=== PATIENT | male | born 1970 | race Caucasian/White ===

== ENCOUNTER 2017-10-02 09:09 | Emergency (ER) | payer MEDICAID ==
[~2017-10-02] VITALS: Ht 182.9 cm; Wt 166.6 kg
[~2017-10-02 09:09] MED LIST: BENADRYL; SULF-59; TYL3
[2017-10-02 09:20] VITALS: BP 152/95
--- NOTE | 2017-10-02 09:24 | NUR ---
Patient ambulated to bed 3. RN evaluating patient at bedside.
--- NOTE | 2017-10-02 09:30 | NUR ---
46M BIB SELF C/O LEFT EAR PAIN X 3-4 DAYS; PT STATES NO TRAUMA OR INJURY TO SITE AT THIS TIME; PT REPORTS OF "BUG" FLYING INTO EAR AND HAS BEEN HURTING SINCE; PT ALSO REPORTS DECREASED HEARING TO LEFT EAR; NO DISCHARGE NOTED TO LEFT EAR; SKIN IS PINK/WARM/DRY; AOX4 WITH EVEN AND STEADY GAIT; RR ARE EVEN AND UNLABORED;VSS; PATIENT POSITIONED FOR COMFORT; HOB ELEVATED; ER MD MADE AWARE OF PT STATUS.
--- NOTE | 2017-10-02 09:31 | NUR ---
Dr. Isidro evaluating patient at bedside.
[2017-10-02] MEDS ORDERED: cefTRIAXone 1,000 MG in LIDOCAINE 1% ***ER ONLY *** 2.1 ML IM ONE (09:45)
[2017-10-02] MEDS ORDERED: KETOROLAC 30 MG/ML VIAL IM ONE (09:45)
[2017-10-02 10:42] VITALS: BP 150/97
--- NOTE | 2017-10-02 10:42 | NUR ---
Patient discharged with v/s stable. Written and verbal after care instructions given and explained. Patient alert, oriented and verbalized understanding of instructions. Ambulatory with steady gait. All questions addressed prior to discharge. ID band removed. Patient advised to follow up with PMD. Rx of Cipro, Tramadol, and Cortisporin given. Patient educated on indication of medication including possible reaction and side effects. Opportunity to ask questions provided and answered.
== END 2017-10-02 10:42 | disposition home or self-care (01) ==
LOC: MED 09:09
DX: H66.92 Otitis media, unspecified, left ear (principal); H60.92 Unspecified otitis externa, left ear; E66.01 Morbid (severe) obesity due to excess calories; I10 Essential (primary) hypertension
CPT/HCPCS: 96372; 99284; J0696; J1885; J2001

== ENCOUNTER 2018-02-19 21:01 | Inpatient (IN) | payer SELFPAY ==
[~2018-02-19] VITALS: Ht 180.3 cm; Wt 191.9 kg
[2018-02-19 21:15] VITALS: BP 174/105
--- NOTE | 2018-02-19 21:16 | NUR ---
PT W/C ASSISTED TO BED 11
--- NOTE | 2018-02-19 21:38 | NUR ---
Dr. Arshad evaluating patient at bedside.
[2018-02-19] MEDS ORDERED: MORPHINE SULFATE 4 MG/ML SYR IVP ONE (21:40)
[2018-02-19] MEDS ORDERED: ONDANSETRON 4 MG/2 ML VIAL IVP ONE (21:40)
--- NOTE | 2018-02-19 21:40 | NUR ---
47Y/M PT. PRESENTS TO ED WITH C/O CHEST PAIN X 2 DAYS. DAUGHTER STATES PAIN ON AND OFF, TODAY GET WORSE. HX. HTN. AAO X4, AMBULATES WITH ASSIST AT THIS TIME. GCS 15. RESPIRATIONS ROOM AIR, EVEN AND UNLABORED. BL LUNG CLEAR, C/O LT. CHEST PAIN 10/10. BP ELEVATED, ER MD MADE AWARE OF PT. STATUS.
[2018-02-19 22:16] LABS: HEMOGLOBIN 15.1 g/dL (12.0-18.0); MEAN CORPUSCULAR HEMOGLOBIN 24 pg (27-31); MEAN CORPUSCULAR HGB CONC 32 g/dL (33-37); MEAN CORPUSCULAR VOLUME 74.6 fL (80-94); PLATELET COUNT (AUTO) 247 K/uL (140-450); RED BLOOD CELL COUNT(AUTO) 6.43 MIL/uL (4.20-6.10); RED CELL DISTRIBUTION WIDTH 14.3 % (11.6-13.7); WHITE BLOOD COUNT (AUTO) 17.5 K/uL (4.8-10.8)
[2018-02-19 22:22] LABS: ANION GAP 17.6 (8-16); CHLORIDE 103 mmol/L (98-107); CREATININE 1.5 mg/dL (0.7-1.3); GFR ARICAN-AMERICAN 65 mL/min (>90); GLUCOSE 183 mg/dL (74-106); POTASSIUM 3.6 mmol/L (3.5-5.1); SODIUM SERUM 143 mmol/L (136-145); UREA NITROGEN, BLOOD 18 mg/dL (7-18)
[2018-02-19 22:27] LABS: ALBUMIN 3.7 g/dL (3.4-5.0); ASPARTATE AMINOTRANSFERASE 27 U/L (15-37); LYMPHOCYTES % (MANUAL) 17 % (20-46); MAGNESIUM 1.9 mg/dL (1.8-2.4); MONOCYTES % (MANUAL) 1 % (5-12); PHOSPHORUS 4.6 mg/dL (2.5-4.9); TOTAL BILIRUBIN 0.2 mg/dL (0.0-1.0)
[2018-02-19] MEDS ORDERED: HYDROmorphone PFS 2 MG/ML SYR IVP ONE (22:45)
--- NOTE | 2018-02-19 22:45 | NUR ---
Patient appears to be resting comfortably in bed. Vital Signs within normal limits. Respirations even and unlabored.
[2018-02-19 22:47] LABS: LIPASE 13175 U/L (73-393)
[2018-02-19 22:54] LABS: PROTHROMBIN TIME 10.6 secs (10.8-13.4)
[2018-02-19] MEDS ORDERED: NACL 0.9% 1,000 ML IV ONE (23:20)
--- NOTE | 2018-02-19 23:36 | NUR ---
PT TAKEN TO RADIOLOGY
--- NOTE | 2018-02-19 23:49 | NUR ---
PT RETURN FROM RADIOLOGY
--- NOTE | 2018-02-19 23:59 | NUR ---
PT.MITCHELL TO URINATE, DR SECHRIST MADE AWARE
[2018-02-20] MEDS: NACL 0.9% 1,000 ML IV SCH ×5 (00:51→20:48)
[2018-02-20] MEDS ORDERED: MORPHINE SULFATE 2 MG/ML SYR IVP PRN ×2 (00:55→03:05)
[2018-02-20] MEDS ORDERED: ACETAMINOPHEN 325 MG TAB PO PRN (00:55)
--- NOTE | 2018-02-20 01:20 | NUR ---
Patient will be admitted to care of . Admited to TELEMETRY. Will go to room 116. Belongings list completed. Report to NO MARIN.
[2018-02-20 01:30] LABS: CHOL/HDL RATIO 5.1 (1-4.5); FREE T4 (FREE THYROXINE) 0.95 ng/dL (0.76-1.46); MAGNESIUM 1.9 mg/dL (1.8-2.4); THYROID STIMULATING HORMONE 5.8 uIU/mL (0.34-3.74)
--- NOTE | 2018-02-20 01:50 | NUR ---
RECEIVED FROM ER PER BENJY AWAKE AND ALERT. NO SOB. PER PT. IN PAIN STILL AND DX. OF PANCREATITIS. SKIN INTACT AND WITH MULTIPLE TATTOES TO DIFFERENT PARTS OF THE BODY.CARE PLANS FOR THE NIGHT DISCUSSED WITH HIM AND CALL LIGHT WITH IN REACH. INDEPENDNET. ROM X 4. ORIENTED X 4. NO EDEMA . CTAB.
[2018-02-20] MEDS: ONDANSETRON 4 MG/2 ML VIAL IM/IVP PRN ×2 (01:55→09:07)
[2018-02-20 02:03] VITALS: BP 145/71
--- NOTE | 2018-02-20 03:00 | NUR ---
PT. REFUSED TO HAVE SEQUENTIALS RT GOES BRP MOST OF TIMES. INDEPENDENT AND WALKS WELL TO RESTROOM. Addendum: 02/20/18 at 0736 by Kelsey Pace RN PT. REFUSED TO HAVE SEQUENTIALS RT GOES BRP MOST OF TIMES. INDEPENDENT AND WALKS WELL TO RESTROOM.
[2018-02-20] MEDS ORDERED: BISACODYL 10 MG SUPP RC ONE (03:05)
[2018-02-20] MEDS ORDERED: MORPHINE SULFATE 2 MG/ML SYR IVP ONE (03:05)
[2018-02-20] MEDS: DOCUSATE SODIUM 100 MG GELCAP PO PRN (03:44)
--- NOTE | 2018-02-20 03:52 | NUR ---
PT. WOKE UP AND COMPLAINED THAT HE STILL HAS PAIN INSPITE OF WHAT MD ORDERED EARLIER OF 2 MG. MORPHINE IVP. PT. ACTUALLY CALMED DOWN A LITTLE BIT AND SLEPT BUT WOKE UP AGAIN AND COMPLAINING OF PAIN. MD ORDERED FOR 1 MG. MORE. MEDICATED ORDERED OF 1 MG. IVP MORPHINE.
--- NOTE | 2018-02-20 04:21 | NUR ---
SLEEPING AT THIS TIME.
[2018-02-20] MEDS ORDERED: PIPERACILLIN/TAZOBACTAM 3.375 GM VIAL IV ONE (05:54)
[2018-02-20] MEDS: PIPER/TAZO 3.375GM/D5W PREMIX 50 ML IV SCH ×3 (06:15→17:57)
[2018-02-20] MEDS ORDERED: NITROGLYCERIN 0.4 MG TAB SL PRN (06:20)
[2018-02-20 06:25] VITALS: BP 146/74
[2018-02-20 07:29] LABS: ANION GAP 16.4 (8-16); CREATININE 1.2 mg/dL (0.7-1.3); POTASSIUM 4.4 mmol/L (3.5-5.1)
--- NOTE | 2018-02-20 07:32 | NUR ---
ENDORSED TO THE NEXT RN FOR CONTINUITY OF CARE. CALL LIGHT WITH IN REACH. NO SOB. PAIN MEDICATION JUST ADMINISTERED. INDEPENDENT. ROM X 4. CLEAR SPEECH.
--- NOTE | 2018-02-20 07:33 | NUR ---
RECEIVED REPORT FROM SENIOR STATISTICIAN RN. PATIENT IS AAOX4, ASLEEP AT THIS TIME BUT AWAKENS BY NAME. NO SIGNS AND SYMPTOMS OF ACUTE DISTRESS NOTED AT THIS TIME. HAS IV TO THE LEFT AC INFUSING NS AT 200 ML/HR, SITE IS CLEAN, DRY, PATENT AND INTACT. BED IS IN LOWEST POSITION, SIDE RAILS UP X2, CALL LIGHT WITHIN REACH. WILL CONTINUE TO MONITOR.
[2018-02-20 07:42] LABS: MAGNESIUM 1.8 mg/dL (1.8-2.4); PHOSPHORUS 3.6 mg/dL (2.5-4.9)
[2018-02-20 07:56] LABS: BASOPHILS # (AUTO) 0.1 K/uL (0.00-0.22); EOSINOPHILS # (AUTO) 0.1 K/uL (0-0.4); HEMATOCRIT 45.3 % (36-52); HEMOGLOBIN 14.4 g/dL (12.0-18.0); LYMPHOCYTES # (AUTO) 0.7 K/uL (2.0-11.5); LYMPHOCYTES % (AUTO) 5.5 % (20.5-51.1); MEAN CORPUSCULAR HEMOGLOBIN 24 pg (27-31); MEAN CORPUSCULAR HGB CONC 32 g/dL (33-37); MEAN CORPUSCULAR VOLUME 74.9 fL (80-94); MONOCYTES # (AUTO) 0.6 K/uL (0.8-1.0); NEUTROPHILS # (AUTO) 11.2 K/uL (1.8-7.7); NEUTROPHILS % (AUTO) 87.5 % (42.2-75.2); PLATELET COUNT (AUTO) 211 K/uL (140-450); RED BLOOD CELL COUNT(AUTO) 6.04 MIL/uL (4.20-6.10); RED CELL DISTRIBUTION WIDTH 14.3 % (11.6-13.7); WHITE BLOOD COUNT (AUTO) 12.7 K/uL (4.8-10.8)
[2018-02-20 08:00] VITALS: BP 128/63
[2018-02-20] MEDS ORDERED: HYDROmorphone PFS 2 MG/ML SYR IVP PRN (08:15)
[2018-02-20] MEDS: LISINOPRIL 20 MG TAB PO SCH (09:04)
[2018-02-20] MEDS: LACTOBACILLUS RHAMNOSUS GG 1 EACH CAP PO SCH (09:04)
[2018-02-20] MEDS: METOPROLOL SUCCINATE 50 MG TABER PO SCH (09:05)
[2018-02-20] MEDS: CALCIUM CARB/VIT-D 500 MG/200 IU 1 TAB PO SCH (09:06)
[2018-02-20] MEDS: ASPIRIN 81 MG TAB.CHEW PO SCH (09:06)
--- NOTE | 2018-02-20 09:40 | NUR ---
SPOKE TO STAFF FROM THE LAB WHO CALLED WITH A CRITICAL LAB RESULT: LACTIC ACID 3.1
--- NOTE | 2018-02-20 09:55 | NUR ---
MADE DR HARDY AND JESSICA AWARE OF PATIENTS LACTIC ACID RESULTS. NO NEW ORDERS AT THIS TIME. WILL CONTINUE TO MONITOR.
--- NOTE | 2018-02-20 11:15 | NUR ---
PATIENTS IV SITE IS INFILTRATED. REMOVED FROM SITE AND CATHETER INTACT. STARTED NEW IV ON THE LEFT HAND 22G. SITE IS CLEAN, DRY, PATENT AND INTACT. PATIENT TOLERATED WELL. WILL CONTINUE TO MONITOR.
[2018-02-20 12:00] VITALS: BP 154/96
[2018-02-20] MEDS: HYDROmorphone PFS 2 MG/ML SYR IVP PRN ×3 (12:13→20:44)
[2018-02-20] MEDS: HYDROcodone/APAP 7.5/325 MG 1 TAB PO PRN (15:56)
[2018-02-20 16:00] VITALS: BP 142/87
--- NOTE | 2018-02-20 16:03 | NUR ---
MADE DR HARDY AND DR COLLADO AWARE THAT PATIENTS O2 SATURATION WAS 85% AND NOT GOING BACK UP. WHEN I ASKED THE PATIENT IF IT HURTS WHEN HE TAKES DEEP BREATHS HE STATED YES. PLACED HIM ON A NASAL CANNULA AT 2LPM.
--- NOTE | 2018-02-20 19:19 | NUR ---
ENDORSED PATIENT TO MAGNETIZER RN FOR CONTINUITY OF CARE. PATIENT IN STABLE CONDITION.
--- NOTE | 2018-02-20 19:20 | NUR ---
RECEIVED FROM AM RN IN BED WITH VISITORS. STATED HE JUST CAME IN FROM RESTROOM INSIDE ROOM. PT. ABLE TO VERBALIZE NEEDS WELL. ENCOURAGED TO DEEP BREATH RT PER AM RN HE IS DE-SATING TO LESS THAN 90. NOTICED PT. BEEN SHORT BREATHING. PLACED BY RESPIRATORY THERAPIST AT THIS TIME 02 TO 4 LPM/NC AND DISCUSSED WITH HIM HOW TO BREATH DEEPLY AND EFFECTS OF IT IF HE DOES NOT BREATH RIGHT. PT. RELAXED AND PRACTICED DEEP BREATHING WHICH MAKES 02 SAT GO TO 94%. CALL LIGHT WITH IN REACH.
[2018-02-20 20:35] VITALS: BP 138/75
[2018-02-20] MEDS: ATORVASTATIN 20 MG TAB PO SCH (20:45)
--- NOTE | 2018-02-20 20:49 | NUR ---
PT. MEDICATED WITH DILAUDID RT COMPLAINED OF SEVERE PAIN. ENCOURGED TO DEEP BREATH.
--- NOTE | 2018-02-20 21:51 | NUR ---
SLEEPING AT THIS TIME. CALL LIGHT WITH IN REACH.
[2018-02-20] MEDS ORDERED: HYDROmorphone PFS 4 MG/ML SYR ONE (23:50)
[2018-02-21] MEDS: PIPER/TAZO 3.375GM/D5W PREMIX 50 ML IV SCH ×3 (00:18→12:17)
[2018-02-21] MEDS: HYDROmorphone PFS 2 MG/ML SYR IVP PRN ×3 (00:20→18:49)
--- NOTE | 2018-02-21 00:20 | NUR ---
DILAUDID 2 MG. IVP ADMINISTERED RT PT. AWAKE AND COMPLAINED OF ABDOMINAL PAIN. MEDICATED ORDERED. 02 SAT 93% WITH 02 AT 4LPM/NC. REMINDED TO DEEP BREATH. "OK"
--- NOTE | 2018-02-21 02:38 | NUR ---
SLEEPING WELL. WAKES UP WHEN CALLED BY NAME. CALL LIGHT WITH IN REACH. TELEMETRY MONITORING.
[2018-02-21] MEDS: NACL 0.9% 1,000 ML IV SCH ×5 (03:02→22:27)
--- NOTE | 2018-02-21 05:12 | NUR ---
PT. PLACED ON OXYMIZER BY RESPIRATORY THERAPIST RT LOW 02 SAT OF 87 ON 02 AT 4 LPM/NC .PT. NOW 02 SAT IS AVERAGING 91-92 %. ENCOURGED TO BREATH DEEP AND WAKE UP FOR US FOR NOW. SITTING IN CHAIR AT THIS TIME. PT. STATES THAT HE REALYY SLEEPS THIS WAY AT HOME. ADVISED BY ME AND RESPIRATORY THERAPIST TO SEE A SLEEP APNEA SPECIALIST WHEN HE GOES HOME FOR POSSIBLE CPAP MACHINE USE. Addendum: 02/21/18 at 0640 by Kelsey Pace RN CHARTING FOR 02/21/18 0638 NOTES. -RESIDENT MD PERRY INFORMED ABOUT IT. NO ORDERS GIVEN AT THIS TIME.
[2018-02-21 05:17] VITALS: BP 116/49
--- NOTE | 2018-02-21 05:31 | NUR ---
PT. BACK IN BED AT THIS TIME WITH HEAD OF BED AT 40 DEGREES ANGLE REQUESTED BY HIM. AM HYGIENE CARE RENDERED BY CNAS.
--- NOTE | 2018-02-21 06:02 | NUR ---
RE-CHECKED 02 SAT NOW WITH OXYMIZER 93 % WITH SAME SETTING CALIBRATED BY RESPIRATORY THERAPIST. ABLE TO VERBALIZE WELL. HOB UP PREFERRED BY PT. AT 40 DEGREE ANGLE. ON TELEMETRY MONITORING.
[2018-02-21] MEDS ORDERED: HYDROmorphone PFS 2 MG/ML SYR IVP PRN (07:15)
--- NOTE | 2018-02-21 08:00 | NUR ---
RECEIVED PATIENT REPORT AT BEDSIDE, PATIENT IS AAOX4 AND SHOWS NO S/S OF ACUTE DISTRESS ON OXYMIZER AT 10L/MIN OF OXYGEN. SKIN INTACT. IV NOTED PATENT AND INTACT WITH IVF'S INFUSING WELL. ON CONTACT PRECAUTIONS AND SAFETY PRECAUTIONS IN PLACE. STATED ABD PAIN 5/10 AFTER EATING BREAKFAST. WILL ADMINISTER PRN PAIN MEDICATION. DISCUSSED PATIENT CARE AND PATIENT VERBALIZED UNDERSTANDING. ALL NEEDS MET AT THIS TIME. PATIENT IS SITTING IN CHAIR. CALL LIGHT WITHIN REACH.
[2018-02-21] MEDS: CALCIUM CARB/VIT-D 500 MG/200 IU 1 TAB PO SCH (09:13)
[2018-02-21] MEDS: LACTOBACILLUS RHAMNOSUS GG 1 EACH CAP PO SCH (09:13)
[2018-02-21] MEDS: LISINOPRIL 20 MG TAB PO SCH (09:13)
[2018-02-21] MEDS: METOPROLOL SUCCINATE 50 MG TABER PO SCH (09:14)
[2018-02-21] MEDS: ASPIRIN 81 MG TAB.CHEW PO SCH (09:14)
[2018-02-21] MEDS: HYDROcodone/APAP 7.5/325 MG 1 TAB PO PRN (09:15)
[2018-02-21] MEDS: ONDANSETRON 4 MG/2 ML VIAL IM/IVP PRN ×2 (09:23→20:57)
[2018-02-21 09:27] VITALS: BP 139/82
--- NOTE | 2018-02-21 09:31 | NUR ---
ADMINISTERED SCHEDULED MEDICATIONS. PATIENT TOLERATED WELL, NO DIFFICULTY SWALLOWING. PATIENT DID C/O ABD PAIN AFTER EATING BREAKFAST, 5/10 ABD PAIN AND C/O NAUSEA. GAVE PRN PAIN MED AND PRN NAUSEA MEDICATION. ALL NEEDS MET AT THIS TIME.
[2018-02-21 10:48] LABS: HEMATOCRIT 41.5 % (36-52); HEMOGLOBIN 13.3 g/dL (12.0-18.0); MEAN CORPUSCULAR HEMOGLOBIN 24 pg (27-31); MEAN CORPUSCULAR HGB CONC 32 g/dL (33-37); MEAN CORPUSCULAR VOLUME 73.9 fL (80-94); PLATELET COUNT (AUTO) 199 K/uL (140-450); RED BLOOD CELL COUNT(AUTO) 5.62 MIL/uL (4.20-6.10); RED CELL DISTRIBUTION WIDTH 14.7 % (11.6-13.7)
--- NOTE | 2018-02-21 11:00 | NUR ---
PATIENT HAS BEEN SCREENED AND CATEGORIZED HIGH NUTRITION RISK. PATIENT WILL BE SEEN WITHIN 1-2 DAYS OF ADMISSION. 02/19/18 - 02/21/[address]
[2018-02-21 11:06] LABS: LYMPHOCYTES % (MANUAL) 10 % (20-46); MONOCYTES % (MANUAL) 6 % (5-12)
--- NOTE | 2018-02-21 11:21 | NUR ---
CALLED DR. LETHA LANGE TO REVIEW AB SAMPLE REPORT
[2018-02-21 12:00] VITALS: BP 110/67
--- NOTE | 2018-02-21 12:23 | NUR ---
CALL BACK FROM DR. LETHA LANGE REVIEWED ABG SAMPLE REPORT TRBO NEW ORDERS: HHN DUONEB Q6 & Q4PRN SOB/WHEEZE; CONTINUE WITH SUPPLEMENTAL OXYGEN KEEP SATURATION GREATER THAN 90%
--- NOTE | 2018-02-21 12:25 | NUR ---
NEY MUSA/NO [id number] REVIEWED ABG SAMPLE REPORT
[2018-02-21] MEDS ORDERED: ALBUTEROL SULFATE/IPRATROPIU 3 ML SOL IH PRN ×2 (12:30→12:35)
--- NOTE | 2018-02-21 12:30 | NUR ---
ADMINISTERED SCHEDULED IV ABX, INFUSING WELL, PATIENT C/O 09/07 ABD PAIN AND CHEST PAIN, DR LOPEZ NOTIFIED. PATIENT ALSO C/O SOB, TO PLACE ORDERS FOR BREATHING TX. PATIENT HAS FAMILY AT BEDSIDE, ALL NEEDS MET AT THIS TIME.
--- NOTE | 2018-02-21 12:35 | NUR ---
ADMINISTERED DILAUDID 1 MG IVP FOR 10/10 SHARP ABD PAIN. WILL REASSESS IN ONE HR.
--- NOTE | 2018-02-21 12:45 | NUR ---
CALLED DR. MARISOL LOPEZ [phone] TO REVIEW AND CLARIFY BIPAP ORDER PER DR DHARMESH LOPEZ NOT IN AREA AT THIS TIME FROM DR RODRIGUEZ UNDERSTANDING BIPAP TO BE USED AT [facility] WILL HAVE DR LOPEZ CALL RESP DEPT
[2018-02-21] MEDS ORDERED: ALBUTEROL SULFATE/IPRATROPIU 3 ML SOL IH SCH (13:00)
--- NOTE | 2018-02-21 13:20 | NUR ---
ULTRA SOUND PROCEDURE IN PROGRESS NO SOB NOTED KITCHEN HELP HANDYMAN TO ATTEMPT HHN THERAPY AT A LATER TIME
--- NOTE | 2018-02-21 13:35 | NUR ---
PATIENT STATES, "PAIN IS A LOT BETTER NOW."
--- NOTE | 2018-02-21 13:59 | NUR ---
02/21/18 RD INITIAL ASSESSMENT COMPLETED PLEASE REFER TO NUTRITION ASSESSMENT UNDER CARE ACTIVITY FOR ESTIMATED NUTRITIONAL NEEDS. 1. CONTINUE CLEAR LIQUID DIET TOLERATED 2. ADVANCE DIET TOLERATED TO CARDIAC PER MD 3. RD TO FOLLOW-UP 3-5 DAYS, MODERATE RISK EMELI FELDER, RD
[2018-02-21] MEDS: ALBUTEROL SULFATE/IPRATROPIU 3 ML SOL IH SCH ×2 (14:10→19:19)
--- NOTE | 2018-02-21 15:40 | NUR ---
AWAKE AND ALERT RESPONSIVE TOR SLD EDUCATIONAL AIDE VERBAL COMMANDS NO INDICATIONS OF PULMONARY DISTRESS NOTED PATIENT DENIES SOB RR 22-24 SUPPLEMENTAL OXYGEN ON AND FUNCTIONING WELL FLOWMETER AT 10 LPM VIA OXYMIZER SATURATION 93%-94% PATIENT IN BED WITH HOB AT 40 DEGREES TOLERATED INCENTIVE SPIROMETRY THERAPY WELL WITHOUT ADVERSE REACTIONS NOTED ENCOURAGED PATIENT WITH ACKNOWLEDGEMENT TO USE EVERY 1-2 HOURS WHILE AWAKE BIPAP PLACED AT BEDSIDE
[2018-02-21 16:06] VITALS: BP 119/53
[2018-02-21] MEDS: DOCUSATE SODIUM 100 MG GELCAP PO PRN (17:33)
[2018-02-21] MEDS: PIPERACILLIN/TAZOBACTAM 3.375 GM in DEXTROSE 5% 50 ML IV SCH ×2 (17:34→23:40)
--- NOTE | 2018-02-21 17:40 | NUR ---
ADMINISTERED SCHEDULED MEDICATIONS, PT C/O CONSTIPATION AND WAS GIVEN COLACE 100 MG PO. IV ABX INFUSING WELL AT THIS TIME. ALL NEEDS MET. BED IN LOW POSITION WITH CALL LIGHT WITHIN REACH.
[2018-02-21] MEDS ORDERED: KETOROLAC 15 MG/ML VIAL IVP PRN (18:40)
--- NOTE | 2018-02-21 19:08 | NUR ---
GAVE PATIENT REPORT AT BEDSIDE, PATIENT ENDORSED IN STABLE CONDITION.
--- NOTE | 2018-02-21 19:09 | NUR ---
RECEIVED PATIENT REPORT AT BEDSIDE, PATIENT IS AAOX4 AND SHOWS NO S/S OF ACUTE DISTRESS ON OXYMIZER AT 10L/MIN OF OXYGEN. SKIN INTACT. IV NOTED PATENT AND INTACT WITH IVF'S INFUSING WELL. ON CONTACT PRECAUTIONS AND SAFETY PRECAUTIONS IN PLACE. RR EVEN/UNLABORED. INITIAL ASSESSMENT COMPLETED. PLAN OF CARE DISCUSSED WITH PT, VERBALIZED UNDERSTANDING, ALL SAFETY PRECAUTIONS MET, CALL LIGHT WITHIN REACH, WILL CONTINUE TO MONITOR
[2018-02-21 20:00] VITALS: BP 120/59
--- NOTE | 2018-02-21 21:00 | NUR ---
PT AND SISTER REQUEST THAT PULMONARY DR COME IN AND TALK WITH THEM. I EXPLAINED THEY DO NOT COME IN AT NIGHT BUT THE RESIDENT DR IS HERE NOW AND CAN COME SEE HIM. WILL NOTIFY DR. HANNA
[2018-02-21] MEDS: ATORVASTATIN 20 MG TAB PO SCH (21:02)
--- NOTE | 2018-02-21 21:15 | NUR ---
DR. HANNA IN TO SEE PT AND DISCUSS PLAN OF CARE
--- NOTE | 2018-02-21 21:30 | NUR ---
PT REQUESTS RT TO COME FIX BI-PAP
--- NOTE | 2018-02-21 21:58 | NUR ---
2149 PLACED PT ON BIPAP IPAP 12 EPAP 6 RR 16 FIO2 60% SATS 97%. NO SOB NOTED PT TOLERATES MASK AT THIS TIME
--- NOTE | 2018-02-21 22:00 | NUR ---
DR. HANNA IN TO SEE PT AND EXPLAIN CT WITH CONTRAST, REASONS AND INDICATIONS
--- NOTE | 2018-02-21 22:00 | NUR ---
IV STARTED IN L AC 20G FOR CT WITH CONTRAST, 2 ATTEMPTS MADE, PT TOLERATED WELL
--- NOTE | 2018-02-21 22:10 | NUR ---
IN TO HAVE PT SIGN CONSENT. SISTER STATES THAT HE TOLD DR HIS BROTHER IS ALLERGIC TO SHELLFISH AND DR HANNA DIDN'T SAY ANYTHING. WILL NOTIFY DR. HANNA
--- NOTE | 2018-02-21 22:20 | NUR ---
DR. HANNA MADE AWARE THAT PT ALLERGIC TO SHELLFISH. HE STATED IT IS OKAY
--- NOTE | 2018-02-21 23:25 | NUR ---
URSZULA FROM RAD CALLED TO ASK ABOUT PT GETTING CT. TOLD HER PT HAS 20G STARTED IN AC AND CONSENT IS SIGNED. URSZULA STATED SHE NEEDS TO SEE PENDING LABS FIRST
--- NOTE | 2018-02-21 23:25 | NUR ---
CALLED JOSE TO ASK WHY LABS ARE STILL PENDING. SHE STATES THEY HAVE BEEN SENT TO [facility] BECAUSE THEIR MACHINES ARE DOWN. SHE WILL FOLLOW UP WITH [facility]
[2018-02-22] VITALS: BP 118/62
--- NOTE | 2018-02-22 00:15 | NUR ---
PT CALLED REQUESTING EXTRA BLANKETS AND PILLOWS FOR THREE FAMILY MEMBERS
[2018-02-22] MEDS ORDERED: NACL 0.9% 1,000 ML IV ONE (00:20)
[2018-02-22] MEDS: ALBUTEROL SULFATE/IPRATROPIU 3 ML SOL IH SCH ×4 (01:12→19:04)
[2018-02-22] MEDS: ONDANSETRON 4 MG/2 ML VIAL IM/IVP PRN (01:18)
--- NOTE | 2018-02-22 01:30 | NUR ---
TANNA FROM [facility] CALLED AND STATED SHE REFUSES TO DO CT BECAUSE CREATININE IS 2.0, NOTIFIED DR. HANNA. HE ORDERED BOLUS AND STATES WE WILL RECHECK IN AM
--- NOTE | 2018-02-22 01:30 | NUR ---
PT CALLED, PT STATES, "SOMEONE CAME IN AND TOLD ME THEY DON'T NEED TO HELP ME AND I'M NOT THIER PROBLEM." I ASKED PT WHO SAID THAT TO HIM AND HE SAID HE COULD NOT REMEMBER AND DOESN'T KNOW WHAT THEY LOOKED LIKE
--- NOTE | 2018-02-22 02:20 | NUR ---
PT CALLED, CAME IN AND PT STATES, "GET THIS BI-PAP OFF OF ME I CAN'T BREATH. I DON'T KNOW WHY THEY PUT THIS ON ME." GILBERTO FROM RT STATED HE WILL COME TAKE THE BI-PAP OFF
--- NOTE | 2018-02-22 02:30 | NUR ---
NOTIFIED DR. HANNA THAT PT REFUSES BI-PAP AND IS FEELING THAT HE CAN'T BREATH. PTS O2 SAT IS 95% ON OXYMIZER. DR. HANNA STATES HE IS GOING TO ORDER HEP DRIP
--- NOTE | 2018-02-22 02:36 | NUR ---
0230 PT REFUSED BIPAP AT THIS TIME. PLACED PT ON 8L OXYMIZER
[2018-02-22] MEDS ORDERED: HEPARIN PER PHARMACY MC PRN (02:45)
[2018-02-22] MEDS: NACL 0.9% 1,000 ML IV SCH ×4 (02:50→16:29)
[2018-02-22] MEDS ORDERED: KETOROLAC 15 MG/ML VIAL IVP PRN (02:50)
[2018-02-22] MEDS ORDERED: KETOROLAC 15 MG/ML VIAL IVP ONE (02:55)
--- NOTE | 2018-02-22 03:37 | NUR ---
CALLED PHARMACY TO ASK FOR DOSING ON HEPARIN DRIP, IT HAS NOT BEEN INPUT YET. PHARMACY STATES, "WHY DOES HE NEED THIS?" I EXPLAINED WHAT THE DOCTOR STATED. PHARMACY STATED THEY WILL INPUT IT
[2018-02-22 04:00] VITALS: BP 122/64
--- NOTE | 2018-02-22 04:12 | NUR ---
HEPARIN BOLUS GIVEN AT THIS TIME
[2018-02-22] MEDS: hePARIN / DEXT 5% PREMIX 250 ML IV SCH ×3 (04:15→18:43)
--- NOTE | 2018-02-22 04:15 | NUR ---
HEPARIN DRIP STARTED AT THIS TIME, INFUSING WELL
--- NOTE | 2018-02-22 05:00 | NUR ---
PT STATES HE FEELS LIKE HE IS DYING. ASKED DR. HANNA TO SEE PT
[2018-02-22] MEDS ORDERED: LORazepam 2 MG/ML VIAL IVP PRN (05:05)
--- NOTE | 2018-02-22 05:10 | NUR ---
DR. HANNA IN TO SEE PT, STATED HE IS CONSTIPATED AND WILL ORDER MEDICATION Addendum: 02/23/18 at 0416 by Guadalupe Soto RN PT IN STABLE CONDITION. VSS, RR EVEN/UNLABORED
[2018-02-22] MEDS ORDERED: CALCIUM GLUCONATE 10% 1000 MG/10 ML VIAL IVP SCH (05:20)
[2018-02-22] MEDS ORDERED: BISACODYL 5 MG TABEC PO SCH (05:20)
--- NOTE | 2018-02-22 05:30 | NUR ---
PT CALLED AND STATES, "NO ONE IS PAYING ATTENTION TO ME HERE! NO ONE DOES ANYTHING FOR ME! EVERYONE LEFT ME ALONE TONIGHT!" I ASKED PT IF HE FELT THAT I DID NOT DO ANYTHING FOR HIM AND HE STATED, "NO NOT YOU, BUT THE LADY WHO WOULDN'T DO ANYTHING ABOUT MY BI-PAP." PT DOES NOT KNOW WHO IT IS
[2018-02-22] MEDS ORDERED: CALCIUM GLUCONATE 10% 1000 MG/10 ML VIAL ONE (06:08)
[2018-02-22 06:19] LABS: T4 (THYROXINE) 7.9 ug/dL (4.5-12.0)
[2018-02-22] MEDS: PIPERACILLIN/TAZOBACTAM 3.375 GM in DEXTROSE 5% 50 ML IV SCH (06:20)
--- NOTE | 2018-02-22 07:19 | NUR ---
REPORT GIVEN TO DAY NURSE FOR CONTINUITY OF CARE, PT IN STABLE CONDITION
--- NOTE | 2018-02-22 07:20 | NUR ---
RECEIVED REPORT FROM NIGHTSHIFT NURSE AT BEDSIDE. PT AWAKE AO X4. NO S/S OF DISTRESS. PT ON OXYMETER 10L. NO SOB AT THIS TIME . NO S/S OF PAIN AT THIS TIME. IV LINE NOTED LAC 20G. BED LOWERED WITH CALL LIGHT WITHIN REACH. WILL COUNTINUE TO MONITOR.
[2018-02-22 08:00] VITALS: BP 151/99
[2018-02-22] MEDS ORDERED: SIMETHICONE 80 MG TAB.CHEW PO PRN (08:50)
[2018-02-22] MEDS: LISINOPRIL 20 MG TAB PO SCH (08:53)
[2018-02-22] MEDS: CALCIUM CARB/VIT-D 500 MG/200 IU 1 TAB PO SCH (08:53)
[2018-02-22] MEDS: ASPIRIN 81 MG TAB.CHEW PO SCH (08:53)
[2018-02-22] MEDS: LACTOBACILLUS RHAMNOSUS GG 1 EACH CAP PO SCH (08:54)
[2018-02-22] MEDS: METOPROLOL SUCCINATE 50 MG TABER PO SCH (08:54)
[2018-02-22] MEDS: HYDROmorphone PFS 2 MG/ML SYR IVP PRN ×3 (08:56→18:40)
[2018-02-22] MEDS ORDERED: SIMETHICONE 80 MG TAB.CHEW PO SCH (10:40)
--- NOTE | 2018-02-22 11:00 | NUR ---
PATIENT IS UPSET AND YELLING AND STATES,"LAST NIGHT I NEEDED HELP WITH THE MACHINE (BIPAP) AND WHEN I ASKED SOMEONE THEY SAID, THEY COULDN'T HELP ME AND I AT 3 AM I STARTED TO FEEL PRESSURE IN MY LOWER PART OF MY STOMACH. IT FEELS LIKE I HAVE TO USE THE RESTROOM, I FEEL CONSTIPATED. I ASKED FOR AN ENEMA BUT NO ONE IS LISTENING TO HOW I FEEL, NO ONE SEEMS TO CARE." DR LOPEZ ATTEMPTED TO SPEAK TO PATIENT AND EDUCATE HIM ON HIS POC; HOWEVER, PATIENT IS TOO AGITATED AT THIS TIME. DR CR IS AT BEDSIDE ALSO ATTEMPTING TO SPEAK WITH PATIENT. PATIENT IS INSISTING AND STATING HE IS NOT BEING LISTENED TO. FAMILY IS AT BEDSIDE. WILL COME BACK AT A LATER TIME WHEN PATIENT HAS CALMED DOWN.
[2018-02-22 11:07] LABS: ANION GAP 16.5 (8-16); CARBON DIOXIDE 24.3 mmol/L (21-32); POTASSIUM 4.8 mmol/L (3.5-5.1)
[2018-02-22 11:08] LABS: AMYLASE 56 U/L (25-115); LIPASE 1968 U/L (73-393)
--- NOTE | 2018-02-22 11:30 | NUR ---
PATIENT IS NOW RESTING IN BED WITH FAMILY AT BEDSIDE. PATIENT SHOWS NO S/S OF ACUTE DISTRESS AT THIS TIME. ON OXYMIZER 9 LPM. O2 SAT 93% RR 24. PATIENT STATES, "MY PAIN IS TOLERABLE RIGHT NOW." PATIENT OKAYED TO HAVE [employer] TECH COME BY AND DRAW AM LABS AND PTT.
[2018-02-22 11:51] LABS: HEMATOCRIT 36.1 % (36-52); HEMOGLOBIN 11.6 g/dL (12.0-18.0); MEAN CORPUSCULAR HEMOGLOBIN 24 pg (27-31); MEAN CORPUSCULAR HGB CONC 32 g/dL (33-37); PLATELET COUNT (AUTO) 166 K/uL (140-450); RED BLOOD CELL COUNT(AUTO) 4.82 MIL/uL (4.20-6.10); RED CELL DISTRIBUTION WIDTH 14.6 % (11.6-13.7); WHITE BLOOD COUNT (AUTO) 14.1 K/uL (4.8-10.8)
[2018-02-22 12:00] VITALS: BP 118/63
[2018-02-22 13:41] LABS: ANION GAP 10.6 (8-16); CARBON DIOXIDE 27.8 mmol/L (21-32); CREATININE 1.4 mg/dL (0.7-1.3); POTASSIUM 4.4 mmol/L (3.5-5.1)
[2018-02-22] MEDS: SIMETHICONE 80 MG TAB.CHEW PO SCH ×3 (14:02→23:56)
[2018-02-22] MEDS: MEROPENEM 500 MG in NACL 0.9% 50 ML IV SCH ×2 (14:02→23:57)
[2018-02-22 14:43] LABS: PROTHROMBIN TIME 11.1 secs (10.8-13.4)
[2018-02-22] MEDS ORDERED: SODIUM PHOSPHATE 118 ML ENEM RC SCH (14:45)
[2018-02-22 15:09] LABS: LYMPHOCYTES % (MANUAL) 8 % (20-46); MONOCYTES % (MANUAL) 5 % (5-12)
--- NOTE | 2018-02-22 15:30 | NUR ---
IV LAC WAS INFILTRATED. IV DISCONTINUED WITH CANULA INTACT. NEW IV SUCCESSFULLY ON RIGHT HAND 22G WITH HEPARIN INFUSING WELL.
--- NOTE | 2018-02-22 15:30 | NUR ---
AT 1444 FLEET ENEMA WAS ADMINISTERED. PT TOLERATED. PT HAD TOLERATED WELL HAD SMALL BOWEL MOVEMENT AND PASSED GAS. PT STATED SMALL RELIEVE OF ABDOMINAL PRESSURE. WILL CONTINUE TO MONITOR.
[2018-02-22 16:00] VITALS: BP 119/73
--- NOTE | 2018-02-22 16:03 | NUR ---
PHARMACY MIS CALCULATED HEPARIN ORDER. CALLED [facility] AND NOTIFY OF MIS CALCULATIONS NEW ORDER WAS GIVEN FOR HEPARIN BOLUS AND RATE CHANGED. PTT 32.6, NEW ORDERS FOR HEPARIN WERE GIVEN HEPARIN RATE 2000U/HR WHICH IS EQUIVALENT 20ML/HR. AND HEPARIN BOLUS OF 9,600 UNITS GIVEN.
--- NOTE | 2018-02-22 16:43 | NUR ---
PT AND PT'S FAMILY REQUESTED TO CHANGE FROM NC TO [place] MASK. PT'S SISTER REQUESTED BC PT WAS GOING SLEEPING AND PT SPO2 WOULD REACH TO 88%. I PUT THE VENTI MASK ON AND SET TO 50%. PT WAS SATING 95%.
[2018-02-22] MEDS ORDERED: guaiFENesin/CODEINE 100/10MG 5 ML UDC PO PRN (16:45)
[2018-02-22] MEDS ORDERED: CALCIUM GLUCONATE 10% 2,000 MG in NACL 0.9% 100 ML IV SCH (17:00)
--- NOTE | 2018-02-22 18:01 | NUR ---
FOUND PT BACK ON 6L NC. PT'S SP02 WAS 95%.
--- NOTE | 2018-02-22 19:05 | NUR ---
ASLEEP EASILY AWAKENS MORBID OBESE PLACED HOB AT 35 DEGREES PRE THERAPY BREATH SOUNDS DIMINISHED BILATERAL POST THERAPY IMPROVING TO CLEAR RIGHT SIDE ALYSSA LML WITH RALJENNIFER LLL SATURATION 95% ON HUMIDIFIED SUPPLEMENTAL OXYGEN AT 6 LPM VIA NC POST HHN THERAPY TITRATED FIO2 TO 5 LPM SUGAR NOTIFIED Addendum: 02/22/18 at 1925 by Javi Hendricks RT IN ROOM Addendum: 02/22/18 at 1928 by Javi Hendricks RT DINORAH TALBOT CONTINUOUS PULSE OXIMETRY ON AND FUNCTIONING WELL LOW SATURATION ALARM SET AT 90%
--- NOTE | 2018-02-22 19:23 | NUR ---
PT REPORT GIVEN TO AUTO RADIATOR SPECIALIST NURSE. PT HAS NO PAIN PT IS ASLEEP. NO S/S OF DISTRESS AT THIS TIME.
--- NOTE | 2018-02-22 19:30 | NUR ---
RECEIVED PATIENT LYING IN BED. CALL LIGHTS WITHIN REACH. NO S/S OF ACUTE DISTRESS AT THIS TIME. WILL CONTINUE TO MONITOR.
[2018-02-22 20:00] VITALS: BP 125/61
--- NOTE | 2018-02-22 21:20 | NUR ---
SEEN PATIENT SITTING IN THE CHAIR WITH FAMILY MEMBERS. ALL NEEDS ATTENDED. NO S/S OF DISTRESS NOTED AT THIS TIME.
[2018-02-22] MEDS: ATORVASTATIN 20 MG TAB PO SCH (23:56)
[2018-02-23] VITALS: BP 117/63
[2018-02-23] MEDS: hePARIN / DEXT 5% PREMIX 250 ML IV SCH (00:15)
--- NOTE | 2018-02-23 01:35 | NUR ---
SEEN PATIENT LYING IN BED ASLEEP. WILL CONTINUE TO MONITOR.
[2018-02-23] MEDS: NACL 0.9% 1,000 ML IV SCH (01:50)
[2018-02-23] MEDS: ALBUTEROL SULFATE/IPRATROPIU 3 ML SOL IH SCH (02:00)
--- NOTE | 2018-02-23 02:00 | NUR ---
SATURATION 95% ON HUMIDIFIED SUPPLEMENTAL OXYGEN AT 5 LPM VIA NC POST HHN THERAPY TITRATED FIO2 TO 4 LPM SUGAR NOTIFIED Addendum: 02/23/18 at 0256 by Javi Hendricks RT FAMILY IN ROOM
--- NOTE | 2018-02-23 03:25 | NUR ---
SEEN PATIENT USING THE BATH ROOM WITH FAMILY MEMBERS. PATIENT REFUSED TO BE CONNECTED TO TELE MONITOR.
--- NOTE | 2018-02-23 03:53 | NUR ---
PATIENT REFUSED 2X TO HAVE TELE MONITOR AND WANT TO TALK TO THE TAR HEATER. ALL NEEDS ATTENDED. ANSWER LIGHTS ON TIME.
[2018-02-23 04:00] VITALS: BP 145/85
[2018-02-23] MEDS ORDERED: MORPHINE SULFATE 2 MG/ML SYR IVP PRN (04:00)
[2018-02-23] MEDS ORDERED: LORazepam 2 MG/ML VIAL IVP PRN (04:10)
[2018-02-23] MEDS ORDERED: LORazepam 2 MG/ML VIAL ONE (04:16)
[2018-02-23] MEDS ORDERED: NACL 0.9% 1,000 ML IV ONE (04:20)
[2018-02-23] MEDS ORDERED: CALCIUM GLUCONATE 10% 1000 MG/10 ML VIAL IVP SCH (04:20)
[2018-02-23] MEDS: ONDANSETRON 4 MG/2 ML VIAL IM/IVP PRN (04:33)
--- NOTE | 2018-02-23 05:30 | NUR ---
ARRIVED TO PATIENT ROOM IV OUT AND PATIENT STATES JUST GO OUT AND CLOSE THE DOOR.
--- NOTE | 2018-02-23 06:30 | NUR ---
PATIENT REFUSED TO DRAW LAB FOR PTT PER COOK P[employer]LED ME[employer].
--- NOTE | 2018-02-23 07:22 | NUR ---
PATIENT AWAKE. FAMILY AT BEDSIDE. PT REFUSED ASSESSMENT. 02 SATURATION 92% ON 4L NC. PT REFUSED BREATHING TX. PT STATED HE WILL NOT TAKE BREATHING TREATMENT UNTIL HE RECEIVES PAIN MEDICATION FIRST. RN NOTIFIED. WILL RETURN TO ATTEMPT BREATHING TX AT A LATER TIME.
--- NOTE | 2018-02-23 07:33 | NUR ---
ENDORSED PATIENT TO AM SHIFT NURSE. PATIENT IN STABLE CONDITION.
--- NOTE | 2018-02-23 07:40 | NUR ---
RECEIVED PATIENT REPORT FROM NIGHT NURSE, PATIENT REFUSED TO HAVE DOOR OPENED, FAMILY OUTSIDE OF ROOM AND STATED, "HE IS IN THE BATHROOM, CAN YOU COME BACK IN A LITTLE BIT." PER LEDA NIGHT NURSE, PATIENT HAS BEEN NON-COMPLIANT, LEDA STATED, "HE PULLED OUT HIS IV THREE TIMES LAST NIGHT AND REFUSED LAB DRAWS THIS MORNING." WILL ATTEMPT TO GO INTO PATIENT'S ROOM WHEN PATIENT IS OUT OF THE BATHROOM.
--- NOTE | 2018-02-23 07:45 | NUR ---
RANDALL DE LA ROSA STATED, "PATIENT REFUSED BREATHING TREATMENT, HE ASKED TO HAVE HIS PAIN MEDICATION FIRST AND I CAN COME BACK AND GIVE THE BREATHING TREATMENT." WILL CALL RANDALL ONCE NEW IV ACCESS IS PLACED AND CAN GIVE IV PAIN MEDICATION.
--- NOTE | 2018-02-23 08:00 | NUR ---
DR FERRELL AND RESIDENTS ARE OUTSIDE OF PATIENT'S ROOM. PATIENT'S DAUGHTER OUTSIDE AND WAS ASKED IF WE MAY COME INTO PATIENT'S ROOM. DAUGHTER STATED, "HE'S IN THE BATHROOM." DR NDIAYE AND DR LOPEZ OUTSIDE OF PATIENT'S ROOM TO SPEAK TO PATIENT REGARDING HIS POC. WHILE WE WAITED I WENT TO GRAB IV KIT, WHILE WALKING OUT OF CLEAN SUPPLY ROOM, PATIENT WAS BEING WHEELED IN A WHEELCHAIR WITH FAMILY PUSHING HIM OUT OF THE UNIT. ATTEMPTED TO STOP AND SPEAK WITH PATIENT HOWEVER PATIENT IGNORED ATTEMPTS TO STOP HIM. CHARGE NURSE LAMAR SARABIA WAS NOTIFIED, [facility]AME AND WENT TO CATCH UP TO PATIENT OUTSIDE IN THE PARKING LOT. PATIENT INSIDE OF HIS CAR UPSET. JENSEN SPOKE WITH PATIENT AND STATED, "CAN WE PLEASE SPEAK WITH YOU ABOUT YOUR CARE AT THE HOSPITAL." PATIENT YELLED AND [facility]GNORED [facility], SHE THEN STATED, "PLEASE, YOU NEED TO GO TO THE NEAREST HOSPITAL." PATIENT YELLED, "YES, WE ARE GOING TO [facility]." PATIENT ELOPED.
--- NOTE | 2018-02-23 08:13 | NUR ---
RETURNED TO ASSESS PATIENT FOR BREATHING TREATMENT. PATIENT NOT IN ROOM. INFORMED BY RN THAT PATIENT ELOPED FROM UNIT.
[2018-02-23] MEDS ORDERED: SENNA 8.6 MG TAB PO SCH (09:00)
[2018-02-23] MEDS ORDERED: BISACODYL 5 MG TABEC PO SCH (09:00)
== END 2018-02-23 08:00 | disposition left against medical advice (07) | DRG 871 ==
LOC: MED 21:01 → MTU 02-20 00:51
PROVIDERS: ADMIT Family Medicine Sports Medicine; ATTEND Family Medicine Sports Medicine
DX: A41.9 Sepsis, unspecified organism (principal); J69.0 Pneumonitis due to inhalation of food and vomit; N17.0 Acute kidney failure with tubular necrosis; J96.01 Acute respiratory failure with hypoxia; K85.90 Acute pancreatitis without necrosis or infection, unspecified; E66.01 Morbid (severe) obesity due to excess calories; I24.9 Acute ischemic heart disease, unspecified; Z68.43 Body mass index [BMI] 50.0-59.9, adult; M94.0 Chondrocostal junction syndrome [Tietze]; K21.9 Gastro-esophageal reflux disease without esophagitis; I10 Essential (primary) hypertension; M51.37 Other intervertebral disc degeneration, lumbosacral region; M51.35 Other intervertebral disc degeneration, thoracolumbar region; Z53.21 Procedure and treatment not carried out due to patient leaving prior to being seen by health care provider; K76.0 Fatty (change of) liver, not elsewhere classified; G47.33 Obstructive sleep apnea (adult) (pediatric); F12.10 Cannabis abuse, uncomplicated; Z83.6 Family history of other diseases of the respiratory system; Z91.14 Patient's other noncompliance with medication regimen; Z79.1 Long term (current) use of non-steroidal anti-inflammatories (NSAID); Z79.899 Other long term (current) drug therapy
CPT/HCPCS: 36415; 36600; 71045; 74018; 76705; 80048; 80053; 82150; 82803; 83036; 83605; 83615; 83690; 83735; 83880; 84100; 84436; 84439; 84443; 84479; 84484; 85025; 85379; 85610; 85730; 93005; 93970; 94640; 96361; 96374; 96375; 99285; G0482; J0610; J0696; J1170; J1644; J1885; J2060; J2185; J2270; J2405; J2543; J7030; J7060; J7620; Q0092